=== PATIENT | female | born 1955 | race Caucasian/White ===

== ENCOUNTER 2018-09-14 10:50 | Emergency (ER) | payer MEDICAID ==
[~2018-09-14] VITALS: Ht 149.9 cm; Wt 81.2 kg
[2018-09-14 10:54] VITALS: BP 142/80
--- NOTE | 2018-09-14 11:00 | NUR ---
pt ambulated to er bed 04
--- NOTE | 2018-09-14 11:11 | NUR ---
PT BIB NIECE TO THE ED WITH THE CHIEF C/O HEAD INJURY S/P FALL TODAY. PER NIECE, PT WAS WALKING AND FELL SUDDENLY. "THIS IS SECOND TIME" NIECE SAYS. PER NIECE, PT HIT HER HEAD DURING FALL. BRUISE AND SWELLING NOTED ON RIGHT SIDE OF THE HEAD AT EYEBROW. PT REPORTED NOSE BLEED PER NIECE. DENIES LOC. DENIES DIZZINESS, N/V/D. DENIES OTHER PROBLEM AT THIS TIME. STATES PAIN OF 01/02. ER AWARE.
--- NOTE | 2018-09-14 11:19 | NUR ---
PT BEING EVALUATED BY ER AT THIS TIME.
[2018-09-14] MEDS ORDERED: KETOROLAC 30 MG/ML VIAL IM ONE (11:30)
--- NOTE | 2018-09-14 11:41 | NUR ---
TAKEN TO THE CT.
--- NOTE | 2018-09-14 11:56 | NUR ---
BACK FROM CT.
[2018-09-14 12:45] VITALS: BP 131/68
== END 2018-09-14 12:42 | disposition home or self-care (01) ==
LOC: MED 10:50
DX: S63.91XA Sprain of unspecified part of right wrist and hand, initial encounter (principal); S09.90XA Unspecified injury of head, initial encounter; E11.9 Type 2 diabetes mellitus without complications; Z90.710 Acquired absence of both cervix and uterus; W01.0XXA Fall on same level from slipping, tripping and stumbling without subsequent striking against object, initial encounter; Y93.89 Activity, other specified; Y92.89 Other specified places as the place of occurrence of the external cause; Y99.8 Other external cause status
CPT/HCPCS: 70450; 73130; 82948; 96372; 99284; J1885; Q0092